=== PATIENT | female | born 1970 | race Two or more races ===

== ENCOUNTER 2021-01-12 07:03 | Day surgery (SDC) | payer OTHER ==
[~2021-01-12 07:03] MED LIST: HUMLOG; IBERSARTAN PO; INVOKAMET PO; LANTUS; SINGULAIR 10MG10 MG PO; ZOCOR40 MG PO
== END 2021-01-12 15:50 | disposition home or self-care (01) ==
LOC: CIR.AMB 07:03
PROVIDERS: ATTEND Obstetrics & Gynecology Obstetrics
DX: N95.0 Postmenopausal bleeding (principal)